=== PATIENT | male | born 1950 ===

== ENCOUNTER 2017-12-26 00:28 | Observation (INO) | payer MEDICARE ==
[2017-12-25 14:47] LABS: INR 0.99
[2017-12-26] VITALS (17 sets, daily range): BP systolic 117–175; BP diastolic 53–93
[~2017-12-26] VITALS: Ht 182.9 cm; Wt 114.8 kg
[~2017-12-26 00:28] MED LIST: MELO-149 PO
--- NOTE | 2017-12-26 08:55 | HISTORY AND PHYSICAL ---
DATE OF ADMISSION: December 26, 2017 IDENTIFICATION/CHIEF COMPLAINT Govind is a 67-year-old gentleman with the chief complaint of right knee pain. HISTORY OF PRESENT ILLNESS Patient has a long-standing history of knee arthritis, progressively painful and debilitating, refractory to conservative care. Surgery is indicated to relieve symptoms after failure of nonoperative measures. PAST MEDICAL HISTORY * Generally good health. PAST SURGICAL HISTORY * Shoulder operation. * Both knees scoped numerous times. ALLERGIES No allergies, but IBUPROFEN bothers his stomach. CURRENT MEDICATIONS * Mobic 7.5 mg p.o. b.i.d. p.r.n. SOCIAL HISTORY Negative for tobacco and alcohol use. FAMILY HISTORY Notable for mother with hypertension, father with arthritis. REVIEW OF SYSTEMS Otherwise normal. PHYSICAL EXAMINATION: GENERAL: This is a well-developed, well-nourished male who appears staged age. HEENT: Normocephalic, atraumatic. NECK: Supple. LUNGS: Clear. HEART: Regular. ABDOMEN: Soft. ORTHOPEDIC EXAM: The right knee has an effusion. He is still at the end range of motion. His old portals are well healed. His extensor function is intact. Gross stability is good. IMAGING Radiographs demonstrate end-stage knee DJD. ASSESSMENT Right knee end-stage degenerative joint disease, progressively painful and debilitating, refractory to conservative care. PLAN Per patient request, we are going to proceed with right total knee arthroplasty. The nature of the procedure, risks, benefits, the anticipated rehab course were reviewed. The risks include, but are not limited to , major medical or anesthetic complication, infection, neurovascular injury, blood transfusion, stiffness, scarring, fracture, tendon rupture or instability , implant loosening, migration or failure, persistent or recurrent pain, need for additional surgery and other unforeseen. He understands and wishes to proceed. A signed permit was placed in the chart. No guarantees are given or implied. [facility]
[2017-12-26] MEDS ORDERED: PROPOFOL EMUL(*) 10MG/ML 20 ML 20 ML ONE (10:43)
[2017-12-26] MEDS ORDERED: ONDANSETRON 4 MG/2 ML VIAL ONE (10:43)
[2017-12-26] MEDS ORDERED: fentaNYL CITR 100 MCG/2 ML AMP ONE (10:43)
[2017-12-26] MEDS ORDERED: LIDOCAINE MPF 1% 5 ML VIAL ONE (10:43)
[2017-12-26] MEDS ORDERED: DEXAMETHASONE SOD PHOS 10MG/ML ONE (10:43)
[2017-12-26] MEDS ORDERED: FAMOTIDINE 20 MG TAB PO ONE (10:45)
[2017-12-26] MEDS ORDERED: CELECOXIB 200 MG CAP PO ONE (10:45)
[2017-12-26] MEDS ORDERED: NORMOSOL R SOLN(*) 1000 ML BAG 1,000 ML IV PRN ×2 (10:45→14:05)
[2017-12-26] MEDS ORDERED: TRANEXAMIC AC 1000 MG/10ML SDV 1,000 MG in DEXTROSE 5% 50 ML BAG 50 ML IV ONE (10:45)
[2017-12-26] MEDS ORDERED: ceFAZolin(*) 2GM/D5W 50ML 50 ML IVPB ONE (10:45)
[2017-12-26] MEDS ORDERED: ACETAMINOPHEN 500 MG TAB PO ONE (10:45)
[2017-12-26] MEDS ORDERED: cloNIDine EPIDUR INJ 100MCG/ML 40 MCG, ROPIVACAINE 0.5% 20 ML VIAL 25 ML, EPINEPHrine H... INJ ONE (10:45)
[2017-12-26] MEDS ORDERED: MIDAZOLAM 2 MG/2 ML VIAL IVP PRN (10:45)
[2017-12-26] MEDS ORDERED: LIDOCAINE/SOD BICARB 8.4% SYR ID ONE (10:45)
[2017-12-26] MEDS ORDERED: PREGABALIN 150 MG CAPSULE PO ONE (10:45)
[2017-12-26] MEDS ORDERED: PHENYLEPHRINE 10 MG/1 ML VIAL ONE (11:30)
[2017-12-26] MEDS ORDERED: FLUSH 10 ML SYR IVP PRN (14:05)
[2017-12-26] MEDS ORDERED: diphenhydrAMINE 25 MG CAP PO PRN (14:05)
[2017-12-26] MEDS ORDERED: ZOLPIDEM TARTRATE 5 MG TAB PO PRN (14:05)
[2017-12-26] MEDS ORDERED: diphenhydrAMINE 50 MG/ML VIAL IVP PRN (14:05)
[2017-12-26] MEDS ORDERED: BENZOCAINE/MENTHOL 1 EACH LOZG PO PRN (14:05)
[2017-12-26] MEDS ORDERED: ACETAMINOPHEN 325 MG TAB PO PRN (14:05)
[2017-12-26] MEDS ORDERED: PROMETHAZINE 25 MG/ML 1 ML AMP IVP PRN (14:05)
[2017-12-26] MEDS ORDERED: BISACODYL 10 MG SUPP PR PRN (14:05)
--- NOTE | 2017-12-26 14:05 | RADIOLOGY IMAGING REPORT ---
FAC[place] [facility] [place]IENT NAME: Govind Malni : 1950 MR: [id number] V: [id number] EXAM DATE: ORDERING PHYSICIAN: JOSEFA GONZALEZ TECHNOLOGIST: Location: [facility] [place] Patient: Govind Malin : 1950 Visit/Account:[id number] Date of Sevice: 12/26/2017 Right knee Indication: Total knee arthroplasty. Comparison: None available Findings: Two views right knee demonstrate anatomic alignment status post right total knee arthroplasty. Bend nents are well seated. Expected soft tissue changes. Spurring is seen from the tibial tubercle and patella. IMPRESSION: 1. Expected postoperative findings status post total knee arthroplasty Report Dictated By: Asaf Mirza MD at 12/26/2017 1:59 PM Report E-Signed By: Asaf Mirza MD at 12/26/2017 2:01 PM WSN:[id number]
[2017-12-26] MEDS ORDERED: CELE-1 PO (15:38)
--- NOTE | 2017-12-26 17:01 | Hospitalist Consultation ---
History of Present Illness Requesting Physician Dr. Jones Reason for Consult Medical Management Chief Complaint s/p right total knee replacement History of Present Illness He was admitted s/p right total knee replacement. It is reported the surgery went well and without complication. History Home Meds Reported Medications Celecoxib (CELEBREX) 200 Mg Capsule, 200 MG PO QDAY for PAIN, CAPSULE 12/26/17 Discontinued Reported Medications Meloxicam (MOBIC) 7.5 Mg Tablet, 15 MG PO QDAY Y for INFLAMATION 12/19/17 Allergies: Coded Allergies: No Known Drug Allergies (Unverified , 12/19/17) Hx Smoking: No Smoking Status: Never Smoker Caffeine Intake: Coffee Caffeine/Cups Per Day: 4 Hx Alcohol Use: Yes Hx Substance Use Disorder: No Social Drug Use: Never History of IV Drug Use: No Review of Systems All Systems Reviewed/Normal: Yes, Except as Noted Exam Vital Signs Vital Signs Date Time Temp Pulse Resp B/P (MAP) Pulse Ox O2 Delivery O2 Flow Rate FiO2 12/26/17 15:53 96 Nasal Cannula 2.0 12/26/17 15:26 97.8 65 12 130/78 (95) General Appearance: Alert, Awake, No Acute Distress, Afebrile Neuro: No Gross deficits Cardiovascular: Regular Rate and Rhythm Respiratory: No Respiratory Distress, Clear to Auscultation GI: Abd Soft and Non-Tender Psych: Alert & Oriented X3, Appropriate Mood & Affect Assessment and Plan Problems: (1) Status post total right knee replacement Status: Acute Assessment & Plan: Followed by Dr. Jones. He will be placed on Aspirin 325mg for DVT prophylaxis. He has no medical problems. We will continue to follow any medical needs. Venous Thromboembolism Antithrombotics Is Pt On Any Antithrombotics?: No Exam Sepsis Risk: No Definite Risk VALERIA AHMADI BUSINESS RISK ANALYST Dec 26, 2017 17:01
[2017-12-26] MEDS: CELECOXIB 200 MG CAP PO SCH (17:02)
[2017-12-26] MEDS: APAP/HYDROCODONE 325/7.5 TAB PO PRN (19:36)
[2017-12-26] MEDS: ceFAZolin(*) 1 GM VIAL 1 GM in NS(*) 0.9% 100 ML ADDVANT BAG 100 ML IVPB SCH (19:36)
[2017-12-27] MEDS: APAP/HYDROCODONE 325/7.5 TAB PO PRN ×5 (01:22→23:46)
[2017-12-27] MEDS: ceFAZolin(*) 1 GM VIAL 1 GM in NS(*) 0.9% 100 ML ADDVANT BAG 100 ML IVPB SCH ×2 (03:08→11:39)
[2017-12-27 03:17] VITALS: BP 136/79
[2017-12-27 08:12] VITALS: BP 124/72
[2017-12-27] MEDS: ASPIRIN 325 MG ENTERIC COATED PO SCH (08:34)
[2017-12-27] MEDS: CELECOXIB 200 MG CAP PO SCH ×2 (08:34→16:16)
[2017-12-27] MEDS ORDERED: ASPIRIN 325 MG TAB PO SCH (09:00)
--- NOTE | 2017-12-27 09:38 | LEVENE TKA ---
EVENT DATE: December 26, 2017 SURGEON: Anam Jones MD ANESTHESIOLOGIST: Jaime Calderon MD ANESTHESIA: General plus spinal FIBER TECHNOLOGIST: GEE Cooper PREOPERATIVE DIAGNOSIS Right knee degenerative joint disease (DJD). POSTOPERATIVE DIAGNOSIS Right knee degenerative joint disease (DJD). PROCEDURE PERFORMED Right total knee arthroplasty. ESTIMATED BLOOD LOSS Minimal. DRAINS None. SPECIMENS None. COMPLICATIONS None. TOURNIQUET TIME 55 minutes IMPLANTS USED Whereoscopeathlon knee system, a 7 size PS femur, a 6 standard tibial baseplate , a 36 universal symmetric patella button and 11 mm PS tibial tray polyethylene X#. INDICATIONS The patient is a 67-year-old gentleman with intractable pain related to end- stage knee arthritis. Surgery is indicated to relieve symptoms after failure of nonoperative measures. DESCRIPTION OF PROCEDURE The patient was taken to the operating room and placed supine on the operating table. A spinal block was administered by the anesthesiologist. General anesthesia was induced. Antibiotics were administered IV. The right lower extremity was prepped and draped in the usual sterile fashion for knee arthroplasty. The limb was exsanguinated with an Esmarch bandage. The tourniquet was inflated to 275 mmHg. A midline longitudinal incision was made and carried down through the skin and subcutaneous tissue to the extensor mechanism. A full-thickness flap was developed far enough medially to allow medial parapatellar arthrotomy to be performed. The patella was everted. The knee was brought into a flexed position. The fat pad, anterior horns of the menisci and cruciate ligaments were debrided. Subperiosteal release was initiated medially in a titrated fashion to start to balance the knee. A step drill was used to enter the distal femur. A 10-inch long alignment guide was used to engage the isthmus. Cut set for 6 degrees of valgus as well as anatomic axis. A 10 mm resection block was applied and pinned and cut was made with an oscillating saw. The AP sizing guide was applied to the distal femur and size 7 was optimal without risk of notching. The four-in-one cutting block was applied. Anterior, posterior, posterior chamfer and anterior chamfer cuts were made respectively. A PS block was applied and centered mediolateral and the bone was resected for the box. The trial femur has a nice fit. Attention was turned to tibial preparation. The extramedullary guide was applied and positioned for varus, valgus, posterior slope and rotation. This was set to resect 9 mm from the intact lateral tibial plateau and set down a couple of millimeters to ensure an adequate cut. The block was pinned into position, extramedullary check was made and the cut was made with an oscillating saw. The gaps were balanced and symmetric after osteophyte removal with no additional steps required. The size 6 tibial baseplate provided good coverage without overhang. This was inserted along with a trial liner and trial femur. The patella was taken from a starting thickness of 25 to a residual of 15 with a patellar clamp and an oscillating saw. A 36 provided optimal bony coverage without soft tissue overhang. The lug holes were drilled. The patella tracts nicely after partial inside out lateral release is performed to release tight tissue along the lateral retinaculum. Final tibial preparation consisted of ensuring appropriate rotational and translational position of the tibial component. The Boss was reamed and the fin was punched. All bony surfaces were lavaged. A mix of polymethylmethacrylate was made and the components were cemented in a single stage. After the cement was fully polymerized, the tourniquet was deflated and hemostasis was assured. The wounds were lavaged to remove all loose debris. The 11 fills up the gap ideally. Size 11 PS tibial tray liner was then locked into the baseplate. The joint was reduced and the arthrotomy was closed in flexion with #2 Ethibond, subcutaneous tissue with 3-0 Vicryl and the skin with surgical alexandru. Xeroform was applied followed by a dry, sterile dressing and a compression wrap. The patient was awakened from the anesthesia and taken to the recovery room in stable condition, having tolerated the procedure well. Plan is for standard TKA rehab protocol. [facility]
--- NOTE | 2017-12-27 09:51 | Hospitalist Progress Note ---
Subjective Progress Notes Subjective He has no concerns this morning. He had no acute events overnight. Patient Complains of: Cardiovascular: No: Chest Pain Respiratory: No: Shortness of Breath Physical Exam Vital Signs Date Time Temp Pulse Resp B/P (MAP) Pulse Ox O2 Delivery O2 Flow Rate FiO2 12/27/17 08:12 94 Room Air 12/27/17 08:12 72 16 124/72 (89) 12/27/17 03:17 98.3 12/26/17 18:30 1.0 Intake and Output 12/28/17 06:59 Intake Total 240 ml Balance 240 ml Intake Oral 240 ml General Appearance: Alert, Awake, No Acute Distress, Afebrile Neuro: No Gross deficits Cardiovascular: Regular Rate and Rhythm Respiratory: No Respiratory Distress, Clear to Auscultation Psych: Alert & Oriented X3, Appropriate Mood & Affect Assessment and Plan Problems: (1) Status post total right knee replacement Status: Acute Assessment & Plan: Followed by Dr. Jones. He will be placed on Aspirin 325mg for DVT prophylaxis. He has no medical problems. We will continue to follow any medical needs. Exam Sepsis Risk: No Definite Risk VALERIA AHMADI LUMBER PRESS OPERATOR Dec 27, 2017 09:51
[2017-12-27 10:45] VITALS: Ht 182.9 cm; Wt 114.8 kg
[2017-12-27 11:40] VITALS: BP 139/82
[2017-12-27 14:55] VITALS: BP 125/85
[2017-12-27] MEDS: DIAZEPAM 5 MG TAB PO PRN ×2 (16:17→22:43)
[2017-12-27 20:15] VITALS: BP 132/73
[2017-12-27] MEDS: MAGNESIUM HYDROXIDE* 30ML UDCP PO PRN (20:15)
[2017-12-27 23:47] VITALS: BP 147/82
[2017-12-28] MEDS: APAP/HYDROCODONE 325/7.5 TAB PO PRN ×3 (04:32→12:35)
[2017-12-28] MEDS: MAGNESIUM HYDROXIDE* 30ML UDCP PO PRN (04:35)
[2017-12-28 04:46] VITALS: BP 164/89
[2017-12-28 07:25] VITALS: BP 129/77
[2017-12-28] MEDS ORDERED: ASPI-764 PO (07:42)
[2017-12-28] MEDS: ASPIRIN 325 MG ENTERIC COATED PO SCH (08:27)
[2017-12-28] MEDS: CELECOXIB 200 MG CAP PO SCH (08:27)
[2017-12-28] MEDS ORDERED: HYDR-4308 PO (09:33)
[2017-12-28 11:03] VITALS: BP 124/75
--- NOTE | 2017-12-28 11:08 | Hospitalist Progress Note ---
Subjective Progress Notes Subjective He has no concerns this morning. He had no acute events overnight. Patient Complains of: Cardiovascular: No: Chest Pain Respiratory: No: Shortness of Breath Physical Exam Vital Signs Date Time Temp Pulse Resp B/P (MAP) Pulse Ox O2 Delivery O2 Flow Rate FiO2 12/28/17 11:03 97.7 76 16 124/75 (91) 91 Room Air 12/26/17 18:30 1.0 Intake and Output 12/29/17 06:59 Intake Total 0 ml Balance 0 ml Intake Oral 0 ml # Voids 1 General Appearance: Alert, Awake, No Acute Distress, Afebrile Neuro: No Gross deficits Cardiovascular: Regular Rate and Rhythm Respiratory: No Respiratory Distress, Clear to Auscultation GI: Soft and Non-Tender Psych: Alert & Oriented X3, Appropriate Mood & Affect Assessment and Plan Problems: (1) Status post total right knee replacement Status: Acute Assessment & Plan: Followed by Dr. Jones. He will be placed on Aspirin 325mg for DVT prophylaxis. Exam Sepsis Risk: No Definite Risk VALERIA AHMADI ARMORED MACHINE OPERATOR Dec 28, 2017 11:08
== END 2017-12-28 09:30 | disposition home or self-care (01) ==
LOC: OR 00:28 → INTOOBSV 15:35 → MED 15:35
PROVIDERS: ADMIT Orthopaedic Surgery; ATTEND Orthopaedic Surgery
DX: M17.11 Unilateral primary osteoarthritis, right knee (principal)
CPT/HCPCS: 27447; 36415; 73560; 85610; 86850; 86900; 86901; 97116; 97161; 97530; A9270; C1713; C1776; G0378; J0171; J0690; J0735; J1100; J1885; J2001; J2370; J2405; J2704; J2795; J3010; J7050; J7060